=== PATIENT | male | born 1945 | race Caucasian/White ===

== ENCOUNTER 2021-10-06 05:32 | Day surgery (SDC) | payer OTHER ==
[2021-10-05 10:12] VITALS: BMI 30.2
[2021-10-06 10:56] VITALS: TEMP 97.3
[2021-10-06 11:37] VITALS: BP 112/70; PULSE 58
== END 2021-10-06 12:00 | disposition home or self-care (01) ==
LOC: JASU-ENDO 05:32
PROVIDERS: ATTEND Internal Medicine Gastroenterology
PROC: 0DBP8ZX Excision of Rectum, Via Natural or Artificial Opening Endoscopic, Diagnostic (ICD-10-PCS; principal; 2021-10-06 10:00)
DX: Z12.11 Encounter for screening for malignant neoplasm of colon (principal); K57.30 Diverticulosis of large intestine without perforation or abscess without bleeding; K64.8 Other hemorrhoids; K62.0 Anal polyp; Z86.010 Personal history of colon polyps
CPT/HCPCS: 88305-TC

== ENCOUNTER 2021-10-18 12:47 | Emergency (ER) | payer OTHER ==
[2021-10-18 12:59] VITALS: TEMP 98.4
[2021-10-18] MEDS ORDERED: CEFTRIAXONE 1 GM in DEXTROSE 5%-WATER - 100 ML IVPB ONE (14:00)
[2021-10-18] MEDS ORDERED: cefTRIAXone SODIUM 1 GM VIAL ONE (14:03)
[2021-10-18 14:40] LABS: ALBUMIN 4.2 g/dl (3.4-5.0); CALCIUM 9.7 mg/dl (8.5-10); CREATININE 1.9 mg/dl (0.55-1.3); TOT PROT 7.2 g/dl (6.4-8.2)
[2021-10-18 15:25] LABS: BASO % 2.1 % (0-2.0); EOS % 1.2 % (0-4.5); HEMATOCRIT 40.5 % (35.4-49); HEMOGLOBIN 13.4 GM/dL (11.7-16.9); LYMPH % 6.2 % (8-40); MCH 23.7 pg (25.7-33.7); MEAN CELL VOLUME 71.7 fl (80-96); MEAN PLT VOLUME 9.1 fl (7.5-11.1); MONO % 7.9 % (3.8-10.2); NEUT % 82.6 % (42.8-82.8); PLATELET COUNT 255 10^3/uL (134-434); RBC 5.64 M/mm3 (4.00-5.60); RDW 15.5 % (11.9-15.9); WHITE BLOOD COUNT 11.7 K/mm3 (4.0-10.0)
[2021-10-18] MEDS ORDERED: LACTATED RINGERS SOLUTION 1,000 ML/1,000 ML INFUS.BAG IV SCH (15:30)
[2021-10-18 15:45] LABS: ANISOCYTOSIS 3+; MACROCYTOSIS 0; PLATELET ESTIMATE NORMAL
[2021-10-18 17:02] VITALS: BP 143/98; PULSE 86
== END 2021-10-18 17:00 | disposition home or self-care (01) ==
LOC: FER 12:47
DX: L60.0 Ingrowing nail (principal); L03.031 Cellulitis of right toe
CPT/HCPCS: 36415; 80053; 85025; 87040; 99284-25; C9803; U0003; U0005

== ENCOUNTER 2021-11-11 04:21 | Day surgery (SDC) | payer OTHER ==
[2021-11-10 13:48] VITALS: BMI 30.5
[2021-11-11] MEDS ORDERED: fentaNYL CITRATE 250 MCG/5 ML VIAL ONE (10:52)
[2021-11-11] MEDS ORDERED: ROCURONIUM BROMIDE 50 MG/5 ML SYRINGE ONE (10:52)
[2021-11-11] MEDS ORDERED: PROPOFOL 20 ML ONE ×2 (10:52→11:55)
[2021-11-11] MEDS ORDERED: MIDAZOLAM HCL 2 MG/2 ML SINGLE DOSE VIAL ONE (10:53)
[2021-11-11] MEDS ORDERED: PHENYLEPHRINE HCL 10 MG/1 ML SINGLE DOSE VIAL ONE (11:07)
[2021-11-11] MEDS ORDERED: ePHEDrine SULFATE 50 MG/1 ML AMPULE ONE (11:08)
[2021-11-11] MEDS ORDERED: ceFAZolin 2 GRAM PREMIX BAG IVPB ONE (11:14)
[2021-11-11] MEDS ORDERED: BUPIVACAINE HCL/PF 0.5% (5MG/ML) 10 ML VIAL IJ ONE (11:16)
[2021-11-11] MEDS ORDERED: KETOROLAC TROMETHAMINE 30 MG/1 ML VIAL ONE (11:28)
[2021-11-11] MEDS ORDERED: DEXAMETHASONE SOD PHOSPHATE 4 MG/1 ML VIAL ONE (11:28)
[2021-11-11] MEDS ORDERED: NEOSTIGMINE METHYLSULFATE 0.5 MG/ML - 10 ML MDV ONE (11:48)
[2021-11-11] MEDS ORDERED: oxyCODONE HCL 5 MG TABLET PO PRN (12:14)
[2021-11-11] MEDS ORDERED: ONDANSETRON 4 MG/2 ML VIAL IVPUSH PRN (12:14)
[2021-11-11] MEDS ORDERED: LACTATED RINGERS SOLUTION 1,000 ML IV SCH (12:15)
[2021-11-11] MEDS ORDERED: oxyCODONE HCL 5 MG TABLET ONE (14:27)
[2021-11-11 15:53] VITALS: BP 147/83; TEMP 97.7
[2021-11-11 16:06] VITALS: PULSE 52
== END 2021-11-11 15:45 | disposition home or self-care (01) ==
LOC: JASU-SURG 04:21
PROVIDERS: ATTEND Surgery
PROC: 0WQF0ZZ Repair Abdominal Wall, Open Approach (ICD-10-PCS; principal; 2021-11-11 10:30)
DX: K42.9 Umbilical hernia without obstruction or gangrene (principal)
CPT/HCPCS: 94760

== ENCOUNTER 2022-06-20 13:44 | Emergency (ER) | payer OTHER ==
[2022-06-20 14:04] VITALS: BP 137/89; PULSE 77; RESP 18; TEMP 99.8; BMI 29.5
[2022-06-20] MEDS ORDERED: guaiFENesin/D-METHORPHAN HB 10 ML UNIT-DOSE CUPS PO ONE (14:37)
[2022-06-20] MEDS ORDERED: ACETAMINOPHEN 500 MG TABLET (FP) PO ONE (14:38)
[2022-06-20] MEDS ORDERED: ACETAMINOPHEN 500 MG TABLET (FP) ONE (14:42)
[2022-06-20] MEDS ORDERED: guaiFENesin/D-METHORPHAN HB 10 ML UNIT-DOSE CUPS ONE (14:42)
== END 2022-06-20 15:31 | disposition home or self-care (01) ==
LOC: FER 13:44
DX: U07.1 COVID-19 (principal); J02.9 Acute pharyngitis, unspecified
CPT/HCPCS: 0241U-QW; 87651; 99283-25

== ENCOUNTER 2023-10-22 10:52 | Emergency (ER) | payer OTHER ==
[2023-10-22 10:59] VITALS: BP 138/98; PULSE 98; RESP 17; TEMP 97.6; BMI 29.4
== END 2023-10-22 11:24 | disposition home or self-care (01) ==
LOC: FER 10:52
DX: M10.9 Gout, unspecified (principal)
CPT/HCPCS: 99283-25